=== PATIENT | male | born 1975 | race Caucasian/White ===

== ENCOUNTER 2019-01-06 11:54 | Emergency (ER) | payer MEDICAID ==
[2019-01-06 16:25] LABS: ADD MAN DIFF? NO
[2019-01-06 16:28] LABS: WHITE BLOOD COUNT 7.5 10^3/ul (4.8-10.8)
[2019-01-06 16:29] LABS: BASOPHILS % 0.4 % (0.0-2.0); EOSINOPHILS # 0.5 10^3/ul (0.0-0.5); EOSINOPHILS % 6.5 % (0.0-7.0); HEMATOCRIT 45.7 % (42.0-52.0); HEMOGLOBIN 15.1 g/dl (14.0-18.0); LYMPHOCYTES # 2.1 10^3/ul (0.8-2.9); LYMPHOCYTES % 27.4 % (15.0-51.0); MEAN CORPUSCULAR HEMOGLOBIN 31.7 pg (29.0-33.0); MEAN PLATELET VOLUME 9.5 fl (7.4-10.4); MONOCYTE # 0.6 10^3/ul (0.3-0.9); MONOCYTES % 7.3 % (0.0-11.0); NEUTROPHIL # 4.4 10^3/ul (1.6-7.5); PLATELET COUNT 284 10^3/UL (140-415); RED BLOOD COUNT 4.76 10^6/ul (4.70-6.10)
[2019-01-06 16:46] LABS: ALANINE AMINOTRANSFERASE 52 IU/L (13-69); ALBUMIN 4.3 g/dl (3.3-4.9); ALKALINE PHOSPHATASE 67 IU/L (42-121); ANION GAP 9 (5-13); ASPARTATE AMINO TRANSFERASE 24 IU/L (15-46); BILIRUBIN,INDIRECT 0.5 mg/dl (0-1.1); BILIRUBIN,TOTAL 0.5 mg/dl (0.2-1.3); BLOOD UREA NITROGEN 11 mg/dl (7-20); CALCIUM 9.4 mg/dl (8.4-10.2); CARBON DIOXIDE 29 mmol/L (21-31); CHLORIDE 103 mmol/L (97-110); CREATININE 0.92 mg/dl (0.61-1.24); Estimated GFR > 60 mL/min (>60); GLUCOSE 98 mg/dl (70-220); POTASSIUM 4.2 mmol/L (3.5-5.1); SODIUM 141 mmol/L (135-144); TOTAL PROTEIN 7.6 g/dl (6.1-8.1)
[2019-01-06 16:59] LABS: TROPONIN-I < 0.012 ng/ml (0.000-0.120)
== END 2019-01-06 17:56 | disposition home or self-care (01) ==
LOC: E/R 11:54
DX: R00.2 Palpitations (principal); Z87.891 Personal history of nicotine dependence
CPT/HCPCS: 71045; 80053; 84443; 84484; 85025; 93005; 99285-25